=== PATIENT | female | born 1945 | race Caucasian/White ===

== ENCOUNTER 2017-01-03 13:46 | Inpatient (IN) | payer OTHER, BC ==
[~2017-01-03] VITALS: Ht 154.9 cm; Wt 62.7 kg
[2017-01-03 13:47] VITALS: BP 105/34
[2017-01-03 14:25] LABS: ABSOLUTE NEUTROPHILS 2.1 thou/uL (1.4-8.2); BASOPHILS 0.6 % (0.0-2.0); EOSINOPHILS 3.2 % (0.0-3.0); LYMPHOCYTES 20.1 % (24.0-44.0); MCH 29.2 pg (26.0-34.0); MCHC 32.3 g/dL (28.0-37.0); MCV 90.5 fL (80.0-100.0); MONOCYTES 8.8 % (1.0-8.0); PLATELET COUNT 131 thou/uL (150-400); POLYS 67.3 % (36.0-66.0); RBC 2.18 mil/uL (4.50-6.00); RDW 17.3 % (10.5-14.5); WBC 3.1 thou/uL (4.0-11.0)
[2017-01-03 14:27] LABS: MANUAL DIFF NO
[2017-01-03 14:29] LABS: ANION GAP 10 mmol/L (7-16); BUN 20 mg/dL (7-18); CALCIUM 8.4 mg/dL (8.5-10.1); CHLORIDE 106 mmol/L (98-107); CO2 24 mmol/L (21-32); CREATININE 0.9 mg/dL (0.7-1.3); GLUCOSE 240 mg/dL (74-106); POTASSIUM 3.8 mmol/L (3.5-5.1); SODIUM 140 mmol/L (136-145)
[2017-01-03 14:30] LABS: HEMOGLOBIN 6.4 gm/dL (14.0-18.0)
[2017-01-03 14:31] LABS: HEMATOCRIT 19.7 % (42.0-52.0)
[2017-01-03 14:35] LABS: ALBUMIN 2.8 g/dL (3.4-5.0); ALKALINE PHOSPHATASE 73 U/L (46-116); DIRECT BILIRUBIN < 0.1 mg/dL (<0.1-0.3); SGOT 16 U/L (15-37); SGPT 25 U/L (30-65); TOTAL BILIRUBIN 0.1 mg/dL (<0.1-1.0); TOTAL PROTEIN 5.8 g/dL (6.4-8.2)
[2017-01-03 15:05] LABS: APTT 19.1 Seconds (24.5-32.8)
[2017-01-03 15:12] LABS: URINE BILIRUBIN NEGATIVE (Negative); URINE BLOOD 2+ (Negative); URINE COLOR YELLOW; URINE GLUCOSE-RANDOM* NEGATIVE (Negative); URINE KETONES NEGATIVE (Negative); URINE NITRITE NEGATIVE (Negative); URINE PROTEIN (DIPSTICK) NEGATIVE (Negative); URINE UROBILINOGEN 0.2 E.U./dl (0.2-1.0)
[2017-01-03 15:24] LABS: BACTERIA 1-9 Few /HPF (None Seen); CASTS None Seen /LPF (None Seen); CRYSTALS None Seen /LPF (None Seen); SQUAMOUS 0-3 Few /LPF (0-3); URINE RBC 0-2 Rare /HPF (0-2); URINE WBC 6-15 Few /HPF (0-5)
[2017-01-03 15:53] VITALS: BP 122/40
[2017-01-03 16:14] VITALS: BP 110/52
[2017-01-03 16:34] LABS: % SATURATION 15 % (20-39); IRON 37 ug/dL (50-170); TIBC 245 ug/dL (250-450); UIBC 208 ug/dL
[2017-01-03 16:37] LABS: OBSERVED RETIC COUNT 4.21 % (0.6-2.6)
[2017-01-03 18:30] VITALS: BP 115/65
[2017-01-03 19:29] VITALS: BP 137/54; BP 144/39
[2017-01-03 20:00] VITALS: BP 144/39
[2017-01-03] MEDS ORDERED: ASPIR 8181 MG PO (23:03)
[2017-01-03] MEDS ORDERED: CLARITIN10 MG PO (23:03)
[2017-01-03] MEDS ORDERED: COLACE 100 MG100 MG PO (23:04)
[2017-01-03] MEDS ORDERED: LAMICTAL100 MG PO (23:05)
[2017-01-03] MEDS ORDERED: KEPPRA 500 MG500 M1 PO (23:06)
[2017-01-03] MEDS ORDERED: LANTUS SUBQ (23:06)
[2017-01-03] MEDS ORDERED: PRINIVIL20 MG PO (23:07)
[2017-01-03] MEDS ORDERED: NORCO 5-325 TA1 EACH PO (23:08)
[2017-01-03] MEDS ORDERED: PAXIL10 MG PO (23:09)
[2017-01-03] MEDS ORDERED: NOVOLOG100 UNIT/1 SUBQ ×2 (23:09→23:13)
[2017-01-03] MEDS ORDERED: LEVOTHYROXIN0.088 MG PO (23:10)
[2017-01-03] MEDS ORDERED: TOPROL XL25 MG PO (23:10)
[2017-01-03] MEDS ORDERED: ZANTAC 150MG T150 MG PO (23:11)
[2017-01-03] MEDS ORDERED: TYLENOL325 MG PO (23:11)
[2017-01-03] MEDS ORDERED: VITAMIN D2000 UNIT PO (23:11)
[2017-01-03] MEDS ORDERED: ONDANSETRON HCL4 M3 PO (23:12)
[2017-01-04] VITALS: BP 128/53
[2017-01-04 03:53] VITALS: BP 118/63; BP 131/60; BP 151/50
[2017-01-04 04:07] VITALS: BP 151/50
[2017-01-04 05:37] LABS: HEMATOCRIT 24.2 % (37.0-47.0); MCH 29.2 pg (26.0-34.0); MCV 88.4 fL (80.0-100.0); RBC 2.74 mil/uL (4.20-5.00); RDW 16.9 % (10.5-14.5); WBC 3.5 thou/uL (4.0-11.0)
[2017-01-04 07:28] VITALS: BP 117/55
[2017-01-04 08:11] LABS: HEMATOCRIT 27.2 % (37.0-47.0); HEMOGLOBIN 9.2 gm/dL (12.0-15.0)
== END 2017-01-04 18:09 | disposition short-term general hospital (02) | DRG 377 ==
LOC: ER 13:46 → 3N 15:11 → EDSEX 15:11 → EROBS 15:11 → 3N 16:16
PROVIDERS: Hospitalist; Nurse Practitioner
PROC: 30233N1 Transfusion of Nonautologous Red Blood Cells into Peripheral Vein, Percutaneous Approach (ICD-10-PCS; principal; 2017-01-03)
PROC: 0DJ08ZZ Inspection of Upper Intestinal Tract, Via Natural or Artificial Opening Endoscopic (ICD-10-PCS; 2017-01-04)
DX: K92.2 Gastrointestinal hemorrhage, unspecified (principal); E43 Unspecified severe protein-calorie malnutrition; N39.0 Urinary tract infection, site not specified; I10 Essential (primary) hypertension; G40.909 Epilepsy, unspecified, not intractable, without status epilepticus; E11.9 Type 2 diabetes mellitus without complications; E03.9 Hypothyroidism, unspecified; D64.9 Anemia, unspecified; I85.00 Esophageal varices without bleeding; K22.70 Barrett's esophagus without dysplasia; K22.8 Other specified diseases of esophagus; Z90.49 Acquired absence of other specified parts of digestive tract; Z88.1 Allergy status to other antibiotic agents; Z88.8 Allergy status to other drugs, medicaments and biological substances; Z79.899 Other long term (current) drug therapy
CPT/HCPCS: 10094; 62110; 62900